=== PATIENT | male | born 1990 | race Caucasian/White ===

== ENCOUNTER 2017-09-18 21:01 | Emergency (ER) | payer OTHER ==
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
[2017-09-18 21:56] LABS: ACETAMINOPHEN < 10 ug/mL (10-30)
[2017-09-18] MEDS ORDERED: LORazepam 2 MG/ML MDV IM ONE (23:31)
== END 2017-09-19 03:25 | disposition home or self-care (01) ==
LOC: FB.ED 21:01
DX: F22 Delusional disorders (principal); F31.9 Bipolar disorder, unspecified; F41.9 Anxiety disorder, unspecified; Z79.899 Other long term (current) drug therapy; Z88.6 Allergy status to analgesic agent
CPT/HCPCS: 36415; 80048; 80305; 84443; 85025; 93005; 96372; 99285; G0480; J2060